=== PATIENT | female | born 1945 | race Caucasian/White ===

== ENCOUNTER → 2024-09-17 10:51 | Outpatient (REF) | payer MEDICARE, SELFPAY ==
--- NOTE | 2024-09-17 10:57 | HM_ITS ---
* Total procedure length 30 days. Wear time 26 days. * Underlying rhythm is sinus with an average rate of 63/Min. * Atrial fibrillation noted about 5.8% of the time. Fastest rate 144/Min. * Rare supraventricular ectopy. * Rare ventricular ectopy. * No symptoms mentioned in diary. MTDD
--- OUTSIDE RECORDS SUMMARY | 2024-09-17 12:03 | XMS_ITS | Patient Health Record ---
Author Organization [facility] Address [address] [facility] [place] [address] Care Team Providers Care Studio Associate Name Role Phone Diony CUBA, Fredy Primary Care Provider Trixie Tony Ni Unavailable [phone] Allergies Allergen (clinical drug ingredient) Drug/Non Drug Allergy documented on EMR Reaction Allergy Type Onset Date Status Information temporarily unavailable Aleve stomach Drug Allergy Active Information temporarily unavailable Amoxicillin Unknown Drug Allergy Active Information temporarily unavailable Motrin stomach Drug Allergy Active Information temporarily unavailable Penicillin Unknown Drug Allergy Active Reason For Referral No Information Medications Medication SIG (Take, Route, Fr equency, Duration) Notes Start Date End Date Status Aspirin 81 MG 1 tablet Orally Once a day; Duration: 30 day(s) Active Vitamin E 400 UNIT 1 capsule Orally Onc e a day; Duration: 30 day(s) Active Vitamin D 1000 UNIT 1 tablet Orally Once a day; Duration: 30 day(s) Active Vitamin C 500 MG as directed Orally Active Lovastatin 40 MG 1 tablet with a meal Orally Once a day; Duration: 30 day(s) Activ e Folic Acid 400 MCG 1 tablet Orally Once a day; Duration: 30 day(s) Active Claritin Orally prn; Duration: 30 day(s) Active Tylenol 325 MG 1 tablet as needed O rally every 6 hrs; Duration: 1 dose 11/29/2012 Active Atenolol 25 MG 1 tablet Orally Once a day; Duration: 30 day(s) Active Problems Problem Type SNOMED Code ICD Code Onset Dates Problem Status W/U Status Risk Notes Problem Information temporarily unavailable Arthralgia (719.40) Active confirmed Problem Information temporarily unavailable Arthritis - Degenerative (719.97) Active confirmed Problem Information temporarily unavailable Hallux Limitus (735.8) Active confirmed Problem Information temporarily unavailable Hallux Valgus (735.0) Active confirmed Plan Of Treatment Pending Test Test Name Order Date X ray : Foot, right 2V 11/29/2012 X ray : Ankle, right 3V 11/29/2012 Insurance Providers Payer Name Payer Address Payer Phone Subscriber Number Group Number Insured Name Patient Relationship to Insured Coverage Start Date Coverage End Date [employer] Preferred [address] [place] [address] [id number] Yohana King Self - patient is the insured Medical (General) History Medical History History ICD Code back, hip, knee pain cataracts high blood pressure measles mumps chicken pox cholesterol Surgical History Surgery Date(Month/Year) tubal ligation 1974 ankle surgery 1977 back surgery 1983 wisdom teeth extraction 1968
--- OUTSIDE RECORDS SUMMARY | 2024-09-17 12:03 | XMS_ITS ---
Author Name [facility] Organization Unknown Care Team Organization Name Specialty Phone Email Start Date End Da te [facility] Kai Kevin Primary Care 08/25/2022 10/09/19 24
--- OUTSIDE RECORDS SUMMARY | 2024-09-17 12:03 | XMS_ITS | Encounter Summary ---
Author Organization [facility] Address [address] [place] [address] Care Team Providers Care Quality Process Auditor Name Role Phone Juju Hoff NP Primary Care Provider [phone] Encounter Details Date Type Department Care Team (Late st Contact Info) Description 07/03/2024 Lab Requisition [facility] - Main Lab [address] [facility] [place] [id number] Maritza Parkinson MD [address] [place] [id number] Encounter for other general examination Social History Tobacco Use Types Packs/Day Years Used Date Smoking Tobacco: Never Smokeless Tobacco: Never Alcohol Use Standard Drinks/Week Comments Not Currently 0 (1 standard drink = 0.6 oz pur e alcohol) Comments Unknown Sex and Gender Information Value Date Recorded Sex Assigned at Not on file Legal Sex Female 9:30 AM EST Gender Identity Not on file Sexual Orientation Not on file documented as of this encounter Functional Status * Are you deaf or do you have serious difficulty hearing? Answer Date of Assessment Author No 06/24/2024 6:38 PM EDT Inez Montemayor RN * Are you blind or do you have serious difficulty seeing, even when wearing glasses? Answer Date of Assessment Author No 06/24/2024 6:38 PM EDT Inez Montemayor RN * Do you have serious difficulty walking or climbing stairs? Answer Date of Assessment Author No 06/24/2024 6:38 PM EDT Inez Montemayor RN * Do you have serious difficulty dressing or bathing? Answer Date of Assessment Author No 06/24/2024 6:38 PM EDT Inez Montemayor RN * Because of a physical, mental, or emotional condition, do you have serious difficulty doing errandsalone such as visiting the doctor? Answer Date of Assessment Author No 06/24/2024 6:38 PM EDT Inez Montemayor RN documented as of this encounter Mental Status * Because of a physical, mental, or emotional condition, do you have serious difficulty concentrating, remembering, or making decisions? (5 years old or older) Answer Entry Date Author No 06/24/2024 6:38 PM EDT Inez Montemayor RN documented in this encounter Plan of Treatment Upcoming Encounters Date Type Department Care Team (Late st Contact Info) Description 09/26/2024 4:00 PM EDT Office Visit Orthopedic Surgery - [place] [address] [facility] [address] [place] [address] Irina Jin MD 175 [facility] [address] [place] [address] 12/17/2024 11:15 AM EDT [facility] [address] [place] [address] Juju Hoff NP [address] [place] [address] 01/30/2025 9:20 AM EST Office Visit [facility] [address] [facility] [address] [place] [address] Yossi Tang MD 300 [facility] [address] [place] [address] documented as of this encounter Procedures Procedure Name Priority Date/Time Associated Diagnosis Comments CBC WITH AUTO DIFFERENTIAL Routine 07/03/2024 6:16 AM EDT Encounter for other general examination CBC AND DIFFERENTIAL Routine 07/03/2024 6:16 AM EDT Encounter for other general examination MAGNESIUM Routine 07/03/2024 6:16 AM EDT Encounter for other general examination COMPREHENSIVE METABOLIC PANEL Routine 07/03/2024 6:16 AM EDT Encounter for other general examination documented in this encounter Results * (ABNORMAL) CBC auto differential (07/03/2024 6:16 AM EDT) [facility] WBC 10.5 4.8 - 10.8 K/mcL LAB HEMETOLOGY METHOD 07/03/2024 8:[address] [facility] RBC 4.20 3.80 - 4.80 M/mcL LAB HEMETOLOGY METHOD 07/03/2024 8:[address] [facility] Hemoglobin 12.2 11.5 - 16.0 g/dL LAB HEMETOLOGY METHOD 07/03/2024 8:[address] [facility] Hematocrit 36.6 35.0 - 47.0 % LAB HEMETOLOGY METHOD 07/03/2024 8:[address] [facility] MCV 86.9 79.0 - 98.0 FL LAB HEMETOLOGY METHOD 07/03/2024 8:[address] [facility] MCH 29.0 27.0 - 32.0 pcg LAB HEMETOLOGY METHOD 07/03/2024 8:[address] [facility] MCHC 33.3 32.0 - 37.0 g/dL LAB HEMETOLOGY METHOD 07/03/2024 8:[address] [facility] RDW 14.8 11.0 - 15.0 % LAB HEMETOLOGY METHOD 07/03/2024 8:[address] [facility] Platelets 345 130 - 400 K/mcL LAB HEMETOLOGY METHOD 07/03/2024 8:[address] [facility] MPV 10.0 7.0 - 11.0 FL LAB HEMETOLOGY METHOD 07/03/2024 8:[address] [facility] NRBC 0.0 <1.0 % LAB HEMETOLOGY METHOD 07/03/2024 8:[address] [facility] NRBC Absolute 0.00 <0.10 K/mcL LAB HEMETOLOGY METHOD 07/03/2024 8:[address] [facility] Neutrophils Relative 56.8 % LAB HEMETOLOGY METHOD 07/03/2024 8:[address] [facility] Lymphocytes Relative 24.4 % LAB HEMETOLOGY METHOD 07/03/2024 8:[address] [facility] Monocytes Relative 13.6 % LAB HEMETOLOGY METHOD 07/03/2024 8:[address] [facility] Eosinophils Relative 3.6 % LAB HEMETOLOGY METHOD 07/03/2024 8:[address] [facility] Basophils Relative 0.7 % LAB HEMETOLOGY METHOD 07/03/2024 8:[address] [facility] Immature Granulocytes Relative 0.9 % LAB HEMETOLOGY METHOD 07/03/2024 8:[address] [facility] Neutrophils Absolute 5.96 1.50 - 7.00 K/mcL LAB HEMETOLOGY METHOD 07/03/2024 8:[address] [facility] Lymphocytes Absolute 2.55 1.00 - 5.00 K/mcL LAB HEMETOLOGY METHOD 07/03/2024 8:[address] [facility] Monocytes Absolute 1.42(H) 0.20 - 1.00 K/mcL LAB HEMETOLOGY METHOD 07/03/2024 8:[address] [facility] Eosinophils Absolute 0.38 0.00 - 0.50 K/mcL LAB HEMETOLOGY METHOD 07/03/2024 8:49 AM EDT [facility] Basophils Absolute 0.07 0.00 - 0.20 K/[facility] LAB HEMETOLOGY METHOD 07/03/2024 8:49 AM EDT [facility] Immature Granulocytes Absolute 0.09(H) 0.00 - 0.03 K/[facility] LAB HEMETOLOGY METHOD 07/03/2024 8:49 AM EDT [facility] Blood Venous blood specimen / Unknown Venipuncture / Unknown 07/03/2024 6:16 AM EDT 07/03/2024 8:06 AM EDT Maritza Parkinson MD LAB BLOOD ORDERABLES Final Resu lt Performing Organization Address City/[facility]/ZIP Co de Phone Number [facility] [address] [place] [address], [place] [phone] * Magnesium (07/03/2024 6:16 AM EDT) Magnesium 2.2 1.9 - 2.6 mg/dL LAB CHEMISTRY METHOD 07/03/2024 9:33 AM EDT [facility] Blood Venous blood specimen / Unknown Venipuncture / Unknown 07/03/2024 6:16 AM EDT 07/03/2024 8:06 AM EDT Maritza Parkinson MD LAB BLOOD ORDERABLES Final Resu lt [facility] [address] [place] [address], [place] [phone] * Comprehensive metabolic panel (07/03/2024 6:16 AM EDT) Sodium 141 133 - 145 mmol/L LAB CHEMISTRY METHOD 07/03/2024 9:34 AM EDT [facility] Potassium 4.0 3.5 - 5.5 mmol/L LAB CHEMISTRY METHOD 07/03/2024 9:[address] [facility] Chloride 106 96 - 110 mmol/L LAB CHEMISTRY METHOD 07/03/2024 9:[address] [facility] CO2 24 21 - 32 mmol/L LAB CHEMISTRY METHOD 07/03/2024 9:[address] [facility] Anion Gap 11 3 - 11 LAB CHEMISTRY METHOD 07/03/2024 9:[address] [facility] Glucose 90 70 - 100 mg/dL LAB CHEMISTRY METHOD 07/03/2024 9:[address] [facility] BUN 15 5 - 25 mg/dL LAB CHEMISTRY METHOD 07/03/2024 9:[address] [facility] Creatinine 0.82 0.50 - 1.10 mg/dL LAB CHEMISTRY METHOD 07/03/2024 9:[address] [facility] eGFR 73 >=60 mL/min/1. 73m2 LAB CHEMISTRY METHOD 07/03/2024 9:[address] [facility] Comment:Calculation based on the Chronic Kidney Disease Epidemiology Collaboration (CKD-EPI) equation refit without adjustment for race. BUN/Creatinine Ratio 18.3 LAB CHEMISTRY METHOD 07/03/2024 9:[address] [facility] Calcium 9.0 8.5 - 10.5 mg/dL LAB CHEMISTRY METHOD 07/03/2024 9:[address] [facility] AST (SGOT) 28 10 - 42 unit/L LAB CHEMISTRY METHOD 07/03/2024 9:[address] [facility] ALT (SGPT) 33 10 - 60 unit/L LAB CHEMISTRY METHOD 07/03/2024 9:[address] [facility] Alkaline Phosphatase 77 42 - 121 unit/L LAB CHEMISTRY METHOD 07/03/2024 9:[address] [facility] Total Protein 6.2 6.0 - 8.0 g/dL LAB CHEMISTRY METHOD 07/03/2024 9:34 AM EDT [facility] Albumin 3.2 3.2 - 5.0 g/dL LAB CHEMISTRY METHOD 07/03/2024 9:34 AM EDT [facility] Total Bilirubin 0.9 0.0 - 1.4 mg/dL LAB CHEMISTRY METHOD 07/03/2024 9:34 AM EDT [facility] Blood Venous blood specimen / Unknown Venipuncture / Unknown 07/03/2024 6:16 AM EDT 07/03/2024 8:06 AM EDT us Maritza Parkinson MD LAB BLOOD ORDERABLES Final Resu lt [facility] [address] [place] [address], documented in this encounter Visit Diagnoses Diagnosis Encounter for other general examination documented in this encounter Care Teams Quality Process Auditor Relationship Specialty Start Date End Date Juju Hoff NP [address] [place] [address] PCP - General 06/17/22 documented as of this encounter
== END ==
LOC: HO.CARD 10:51
PROVIDERS: Absent Provider Registered Nurse; PCP Nurse Practitioner Primary Care; Visit Provider Psychiatry & Neurology Neurology
DX: I63.9 Cerebral infarction, unspecified (principal)
CPT/HCPCS: 93270

== ENCOUNTER → 2024-09-17 10:57 | Outpatient (BNV) | payer MEDICARE, SELFPAY | PROVIDERS: Absent Provider Registered Nurse; PCP Nurse Practitioner Primary Care; Visit Provider Internal Medicine | DX: I48.91 Unspecified atrial fibrillation (principal); I47.10 Supraventricular tachycardia, unspecified | CPT/HCPCS: 93272 ==

== ENCOUNTER 2024-10-01 13:22 | Outpatient (AMB) | payer MEDICARE, SELFPAY ==
--- NOTE | 2024-10-01 13:47 | A.OFFVIS_ITS ---
Intake Visit Reasons: 2 months Allergies amoxicillin Allergy (Unknown, Verified 08/29/24 17:11) Unknown HPI Comments Details: This is a 79-year-old woman who had the sudden onset of right facial droop right arm weakness and inability to express herself on 06/24/24.? She was immediately taken to [facility] emergency room where she received DNT and was then transported to [facility] for thrombectomy from the left M2 segment, which resulted in a part of the clot and being lost into the M3 resulting in a small MCA infarct.? Subsequent to CAT scans showed a small amount of subarachnoid hemorrhage.? The patient and has recovered from of facial droop and weakness and is able to say a few words, but still has significant expressive if easier.? No previous history of stroke.? Details of the status of the carotid arteries in the neck was not available from the documents that were provided.? She has not had a cardiac monitoring done to look for atrial fibrillation.? Echocardiogram was unremarkable. 30 day event monitor shows atrial fibrillation. Speech is improving slowly. [facility] Medical History (Updated 10/01/24 @ 13:56 by Nancie Cummins MD) Expressive aphasia Cerebral infarct Review of Systems Const Details: Sleep:? Difficulty getting to sleepdenies.? Difficulty maintaining sleepdenies?.? Urge to move legsdenies.? Teeth grindingdenies.? Shouting or Kicking during sleep denies.? Abnormal behavior during sleepdenies.? Excessive sleepdenies.? Snoring denies.? Daytime sleepinessdenies. ???General/Constitutional:? Change in appetitedenies.? Chillsdenies.? Fatiguedenies.? Feverdenies.? Weight gaindenies.? Weight lossdenies. ???Ophthalmologic:? Blurred visiondenies.? Diminished visual acuitydenies. ???ENT:? Stuffinessdenies.? Decreased hearingdenies.? Dry mouthdenies.? Ear paindenies.? Nosebleeddenies.? Ringing in the earsdenies.? Sinus paindenies.? Sore throat denies.? Swollen glandsdenies. ???Endocrine:? Cold intolerancedenies.? Excessive thirstdenies.? Frequent urinationdenies.? Heat intolerancedenies. ???Respiratory:? Shortness of breathdenies.? Chest paindenies.? Coughdenies. ???Breast:? Breast lumpdenies.? Nipple dischargedenies. ???Cardiovascular:? Chest pain at restdenies.? Chest pain with exertiondenies.? Claudicationdenies .? Dizzinessdenies.? Fluid accumulation in the legsdenies.? Irregular heartbeat denies.? Palpitationsdenies. ???Gastrointestinal:? Abdominal paindenies.? Constipationdenies.? Diarrheadenies.? Difficulty swallowingdenies.? Heartburndenies.? Nauseadenies.? Rectal bleedingdenies. ???Hematology:? Easy bruisingdenies.? Prolonged bleedingdenies. ???Genitourinary:? Frequent urinationdenies.? Urgencydenies.? Incontinencedenies.? Erectile Dysfunctiondenies. ???Musculoskeletal:? Neck paindenies.? Back paindenies.? Muscle achesdenies.? Painful jointsdenies.? Sciaticadenies.? Weaknessdenies. ???Podiatric:? Difficulty walkingdenies.? Foot numbnessdenies. ???Neurologic:? Difficulty swallowingdenies.? Balance difficultydenies.? Coordinationnormal.? Difficulty speakingadmits.? Dizzinessdenies.? Faintingdenies.? Gait abnormality denies.? Headachedenies.? Loss of strengthdenies.? Loss of use of extremity denies.? Low back paindenies.? Memory lossdenies.? Seizuresdenies.? Ticsdenies.? Tingling/Numbnessdenies.? Transient loss of visiondenies.? Tremordenies. ???Psychiatric:? Anxietydenies.? Auditory/visual hallucinationsdenies.? Delusionsdenies.? Depressed mooddenies.? Stressorsdenies.? Substance abusedenies.? Suicidal thoughtsdenies. Physical Exam Neuro Other: Neurological: Abnormal neurological findings:??expressive dysphagia.? Able to speak in single words..?Mental Status:??alert and oriented X 3,?Normal attention, orientation, memory and affect.?Cranial Nerves:??Pupils are equal, round and reactive to light. Fundoscopy shows normal disc bilaterally. External occular muscles are intact. Visual porter are full, no ptosis. Face is symmetrical, no facial weakness or droop. Facial sensations are normal. Tongue protrudes in midline. Palate elevates symmetrically. Shoulder shrugging is normal..?Motor Examination:??Normal muscle tone, bulk and strength,?No atrophy or fasciculations,?No drift of the extended upper extremities,?Deep tendon reflexes are 2+?,?Plantars are flexor?.?Motor Strength:?Proximal Muscles (out of 5):5 Distal Muscles (out of 5):5Neck Flexors (out of 5):5Neck Extensors (out of 5):5 Deltoid (out of 5):5Biceps (out of 5):5Triceps (out of 5):5Serratus Anterior (out of 5):5Wrist Extensors (out of 5):5APB (out of 5):5Finger Spread (out of 5):5Ileopsoas (out of 5):5Quadriceps (out of 5):5Hamstrings (out of 5):5Tibialis Anterior (out of 5):5Peronei (out of 5):5EDB (out of 5):5Gastrocnemius (out of 5):5Straight Leg Raising:??90 degrees.?Sensory Exam:??Normal light touch, temperature, pinprick, vibration and joint-position sensations?,?Rhomberg sign is absent.?Coordination:??no ataxia,?no titubation,?ibacvg-ge-atet, xdug-oipu-mzcq test and rapid alternating movements were normal.?Gait Exam:??Wi thin normal limits.?Cerebellar Signs:??Xafpst-fe-jzbg and fjyr-zl-enjr is normal,?no dysdiadochokinesia?.?Extrapyramidal System:??No tremor, rigidity with normal facial expressions,?No bradykinesia, no bradyphrenia. Normal arm swing and posture. No propulsion or retropulsion.?Speech:??Expressive?dysphasia..? Mini Mental Status Exam: Level of Consciousness:??Alert.?Orientation:??Knows correct year, month, date, day and season,?Knows correct city, county and state. Knows correct location and floor.?Registration:??Able to register 3 objects.?Attention:??Serial 7's performed accurately.?Recall:??Able to recall 3 out of 3 objects.?Language:??Normal spontaneous speech, fluency, repetition,naming, comprehension, reading and writing.?Total Score:??30/30.? General Examination: GENERAL APPEARANCE:??normal,?in no acute distress.?HEAD:??normocephalic,?atraumatic.?EYES:??sclera non- icteric,?conjunctiva clear.?EARS:??auditory canal clear,?tympanic membrane intact, clear.?NOSE:??no lesions.?ORAL CAVITY:??gums normal,?mucosa moist,?no lesions.?THROAT:??clear.?NECK/THYROID:??no cervical lymphadenopathy,?thyroid normal,?neck supple, full range of motion,?no carotid bruit.?SKIN:??no rashes,?no significant birthmarks.?HEART:??S1, S2 normal,?no murmurs.?LUNGS:??clear anteriorly and posteriorly.?CHEST:??no gross rib deformity,?clear to auscultation.?BACK:??normal exam of spine.?EXTREMITIES:??no edema.?PERIPHERAL PULSES:??normal.?PSYCH:??alert, oriented,?cognitive function intact,?cooperative with exam.? Results Reviewed Results Reviewed: 06/24/24 CT angio showed abrupt occlusion of M2 branch of left MCA. Otherwise patent head and neck CTA Cardiac event monitor showing periods of atrial fib with rapid vent rate. Assessment & Plan Assessment & Plan (1) Cerebral infarct: Code(s): I63.9 - Cerebral infarction, unspecified Category: Medical (2) Atrial fibrillation: Code(s): I48.91 - Unspecified atrial fibrillation Category: Medical (3) Expressive aphasia: Code(s): R47.01 - Aphasia Category: Medical Plan Cardiology consult KIET. Start Eliquis ( may not be covered by insurance). Orders: Referrals Cardiology Referral I48.91 - Unspecified atrial fibrillation, I63.9 - Cerebral infarction, unspecified Medications: New apixaban (Eliquis) 5 mg PO BID 60 tabs 4RF I48.91 - Unspecified atrial fibrillation, I63.9 - Cerebral infarction, unspecified Coding Level of Care Code Est Pt Level 4 (19801) Diagnoses Cerebral infarct I63.9 Atrial fibrillation I48.91 Expressive aphasia R47.01
--- OUTSIDE RECORDS SUMMARY | 2024-10-01 14:12 | XMS_ITS | Patient Health Record ---
Author Organization [facility] Address [address] [facility] [place] [address] Care Team Providers Care Wordpress Developer Name Role Phone Diony CUBA, Fredy Primary Care Provider Trixie Tony Ni Unavailable [phone] Allergies Allergen (clinical drug ingredient) Drug/Non Drug Allergy documented on EMR Reaction Allergy Type Onset Date Status Aleve stomach Drug Allergy Active amoxicillin Amoxicillin Unknown Drug Allergy Act nimisha Motrin stomach Drug Allergy Active Penicillin Unknown Drug Allergy Active Reason For [...] Problem Status W/U Status Risk Notes Problem Arthralgia (89041142) Arthralgia (719.40) Active confirmed Problem Disorder of joint of ankle and/or foot (272902689) Arthritis - Degenerative (719.97) Active confirmed Problem 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) (452242935) Hallux Limitus (735.8) Active confirmed Problem Hallux valgus (509333994) Hallux Valgus (735.0) Active confirmed Plan Of Treatment Pending Test Test Name Order Date X ray : Foot, right 2V 11/29/2012 X ray : Ankle, right 3V 11/29/2012 Insurance Providers Payer Name Payer Address Payer Phone Subscriber Number Group Number Insured Name Patient Relationship to Insured Coverage Start Date Coverage End Date [employer] Preferred [address] [place] [address] [id number] Yohana King Self - patient is the insured Medical (General) History Medical History History ICD Code back, hip, knee pain cataracts high blood pressure measles mumps chicken pox cholesterol Surgical History Surgery Date(Month/Year) tubal ligation 1974 ankle surgery 1977 back surgery 1983 wisdom teeth extraction 1968
--- OUTSIDE RECORDS SUMMARY | 2024-10-01 14:12 | XMS_ITS | Encounter Summary ---
Author Organization [facility] Address [address] [place] [address] Care Team Providers Care Cement Crusher Operator Name Role Phone Juju Hoff NP Primary Care Provider Encounter Details Date Type Department Care Team (Late st Contact Info) Description 07/03/2024 Lab Requisition [facility] - Main Lab [address] [facility] [place] [phone] Maritza Parkinson MD [address] [place] [phone] Encounter for other general examination Social History [...] Care Team (Late st Contact Info) Description 11/04/2024 1:00 PM EDT [facility] [address] [place] [phone] Juju Hoff NP [address] [place] [address] 12/17/2024 11:15 AM EDT [facility] [address] [place] [phone] Juju Hoff NP 305 [place] [address] 01/30/2025 9:20 AM EST Office Visit [facility] - [facility] 154 300 [facility] 154 [place] [address] Yossi Tang MD 300 [facility] 154 [place] [address] documented as of this encounter Procedures Procedure [...] CBC auto differential (07/03/2024 6:16 AM EDT) [facility] WBC 10.5 4.8 - 10.8 K/mcL LAB [facility] RBC 4.20 3.80 - 4.80 M/mcL LAB HEMETOLOGY METHOD 07/03/2024 8:49 AM [facility] Hemoglobin 12.2 11.5 - 16.0 g/dL LAB HEMETOLOGY METHOD 07/03/2024 8:49 AM [facility] Hematocrit 36.6 35.0 - 47.0 % LAB HEMETOLOGY METHOD 07/03/2024 8:49 AM [facility] MCV 86.9 79.0 - 98.0 FL LAB HEMETOLOGY METHOD 07/03/2024 8:49 AM [facility] MCH 29.0 27.0 - 32.0 pcg LAB HEMETOLOGY METHOD 07/03/2024 8:49 AM [facility] MCHC 33.3 32.0 - 37.0 g/dL LAB HEMETOLOGY METHOD 07/03/2024 8:49 AM [facility] RDW 14.8 11.0 - 15.0 % LAB HEMETOLOGY METHOD 07/03/2024 8:49 AM [facility] Platelets 345 130 - 400 K/mcL LAB HEMETOLOGY METHOD 07/03/2024 8:49 AM [facility] MPV 10.0 7.0 - 11.0 FL LAB HEMETOLOGY METHOD 07/03/2024 8:49 AM [facility] NRBC 0.0 <1.0 % LAB HEMETOLOGY METHOD 07/03/2024 8:49 AM [facility] NRBC Absolute 0.00 <0.10 K/mcL LAB HEMETOLOGY METHOD 07/03/2024 8:49 AM [facility] Neutrophils Relative 56.8 % LAB HEMETOLOGY METHOD 07/03/2024 8:49 AM [facility] Lymphocytes Relative 24.4 % LAB HEMETOLOGY METHOD 07/03/2024 8:49 AM [facility] Monocytes Relative 13.6 % LAB HEMETOLOGY METHOD 07/03/2024 8:49 AM [facility] Eosinophils Relative 3.6 % LAB HEMETOLOGY METHOD 07/03/2024 8:49 AM [facility] Basophils Relative 0.7 % LAB HEMETOLOGY METHOD 07/03/2024 8:49 AM [facility] Immature Granulocytes Relative 0.9 % LAB HEMETOLOGY METHOD 07/03/2024 8:49 AM [facility] Neutrophils Absolute 5.96 1.50 - 7.00 K/mcL LAB HEMETOLOGY METHOD 07/03/2024 8:49 AM [facility] Lymphocytes Absolute 2.55 1.00 - 5.00 K/mcL LAB HEMETOLOGY METHOD 07/03/2024 8:49 AM [facility] Monocytes Absolute 1.42(H) 0.20 - 1.00 K/mcL LAB HEMETOLOGY METHOD 07/03/2024 8:49 AM [facility] Eosinophils Absolute 0.38 0.00 - 0.50 K/[facility] LAB HEMETOLOGY METHOD 07/03/2024 8:[address] [facility] Basophils Absolute 0.07 0.00 - 0.20 K/[facility] LAB HEMETOLOGY METHOD 07/03/2024 8:[address] [facility] Immature Granulocytes Absolute 0.09(H) 0.00 - 0.03 K/[facility] LAB HEMETOLOGY METHOD 07/03/2024 8:[address] [facility] Blood Venous blood specimen / Unknown Venipuncture / Unknown 07/03/2024 6:16 AM EDT 07/03/2024 8:06 AM EDT us Maritza Parkinson MD LAB BLOOD ORDERABLES Final Resu lt Performing Organization Address City/[facility]/ZIP Co de Phone Number [facility] [address] [place] [address], [place] [phone] * Magnesium (07/03/2024 6:16 AM EDT) Magnesium 2.2 1.9 - 2.6 mg/dL LAB CHEMISTRY METHOD 07/03/2024 9:[address] [facility] Blood Venous blood specimen / Unknown Venipuncture / Unknown 07/03/2024 6:16 AM EDT 07/03/2024 8:06 AM EDT us Maritza Parkinson MD LAB BLOOD ORDERABLES Final Resu lt [facility] [address] [place] [address], [place] [phone] * Comprehensive metabolic panel (07/03/2024 6:16 AM EDT) Sodium 141 133 - 145 mmol/L LAB CHEMISTRY METHOD 07/03/2024 9:[address] [facility] Potassium 4.0 3.5 - 5.5 mmol/L LAB CHEMISTRY METHOD 07/03/2024 9:34 AM [facility] Chloride 106 96 - 110 mmol/L LAB CHEMISTRY METHOD 07/03/2024 9:34 AM [facility] CO2 24 21 - 32 mmol/L LAB CHEMISTRY METHOD 07/03/2024 9:34 AM [facility] Anion Gap 11 3 - 11 LAB CHEMISTRY METHOD 07/03/2024 9:34 AM [facility] Glucose 90 70 - 100 mg/dL LAB CHEMISTRY METHOD 07/03/2024 9:34 AM [facility] BUN 15 5 - 25 mg/dL LAB CHEMISTRY METHOD 07/03/2024 9:34 AM [facility] Creatinine 0.82 0.50 - 1.10 mg/dL LAB CHEMISTRY METHOD 07/03/2024 9:34 AM [facility] eGFR 73 >=60 mL/min/1. 73m2 LAB CHEMISTRY METHOD 07/03/2024 9:34 AM [facility] Comment:Calculation based on the Chronic Kidney Disease Epidemiology Collaboration (CKD-EPI) equation refit without adjustment for race. BUN/Creatinine Ratio 18.3 LAB CHEMISTRY METHOD 07/03/2024 9:34 AM [facility] Calcium 9.0 8.5 - 10.5 mg/dL LAB CHEMISTRY METHOD 07/03/2024 9:34 AM [facility] AST (SGOT) 28 10 - 42 unit/L LAB CHEMISTRY METHOD 07/03/2024 9:34 AM [facility] ALT (SGPT) 33 10 - 60 unit/L LAB CHEMISTRY METHOD 07/03/2024 9:34 AM [facility] Alkaline Phosphatase 77 42 - 121 unit/L LAB CHEMISTRY METHOD 07/03/2024 9:34 AM [facility] Total Protein 6.2 6.0 - 8.0 g/dL LAB CHEMISTRY METHOD 07/03/2024 9:[address] [facility] Albumin 3.2 3.2 - 5.0 g/dL LAB CHEMISTRY METHOD 07/03/2024 9:[address] [facility] Total Bilirubin 0.9 0.0 - 1.4 mg/dL LAB CHEMISTRY METHOD 07/03/2024 9:[address] [facility] Blood Venous blood specimen / Unknown Venipuncture / Unknown 07/03/2024 6:16 AM EDT 07/03/2024 8:06 AM EDT us Maritza Parkinson MD LAB BLOOD ORDERABLES Final Resu lt [facility] [address] [place] [address], documented in this encounter Visit Diagnoses Diagnosis Encounter for other general examination documented in this encounter Care Teams Cement Crusher Operator Relationship Specialty Start Date End Date Juju Hoff NP [address] [place] [address] PCP - General 06/17/22 documented as of this encounter
== END 2024-10-01 14:06 | disposition home or self-care (01) ==
LOC: HO.HSM 13:23
PROVIDERS: PCP Nurse Practitioner Primary Care; Referring Provider Nurse Practitioner Primary Care; Visit Provider Psychiatry & Neurology Neurology
DX: I63.9 Cerebral infarction, unspecified (principal); I48.91 Unspecified atrial fibrillation; R47.01 Aphasia
CPT/HCPCS: 99214

== ENCOUNTER → 2024-10-01 13:22 | Outpatient (BNVA) | payer MEDICARE, SELFPAY | PROVIDERS: PCP Nurse Practitioner Primary Care; Referring Provider Nurse Practitioner Primary Care; Visit Provider Psychiatry & Neurology Neurology | DX: R47.01 Aphasia (principal); I48.91 Unspecified atrial fibrillation; I63.9 Cerebral infarction, unspecified | CPT/HCPCS: 99212 ==

== ENCOUNTER 2024-12-25 10:40 | Outpatient (AMB) | payer MEDICARE, SELFPAY ==
--- NOTE | 2024-12-25 10:43 | MHC.OFFVIS ---
Intake Visit Reasons: 3 Months Allergies amoxicillin Allergy (Unknown, Verified 08/29/24 17:11) Unknown Medication List - Last Reconciled 12/25/24 by Nancie Cummins MD apixaban (Eliquis) 5 mg PO BID atenolol 25 mg PO DAILY fluoxetine 20 mg PO DAILY rosuvastatin 10 mg PO DAILY HPI Comments Details: This is a 79-year-old woman who had the sudden onset of right facial droop right arm weakness and inability to express herself on 06/24/24.? She was immediately taken to [facility] emergency room where she received DNT and was then transported to [facility] for thrombectomy from the left M2 segment, which resulted in a part of the clot being lost into the M3 resulting in a small MCA infarct.? Subsequent to CAT scans showed a small amount of subarachnoid hemorrhage.? The patient and has recovered from of facial droop and weakness and is able to say a few words, but still has significant expressive dysphasia.? No previous history of stroke.? Details of the status of the carotid arteries in the neck was not available from the documents that were provided.? Echocardiogram was unremarkable. 30 day event monitor shows atrial fibrillation. Speech is improving slowly. [facility] Medical History (Updated 10/01/24 @ 13:56 by Nancie Cummins MD) Expressive aphasia Cerebral infarct Review of Systems Const Details: Sleep:? Difficulty getting to sleepdenies.? Difficulty maintaining sleepdenies?.? Urge to move legsdenies.? Teeth grindingdenies.? Shouting or Kicking during sleepdenies.? Abnormal behavior during sleepdenies.? Excessive sleepdenies.? Snoringdenies.? Daytime sleepinessdenies. ???General/Constitutional:? Change in appetitedenies.? Chillsdenies.? Fatiguedenies.? Feverdenies.? Weight gaindenies.? Weight lossdenies. ???Ophthalmologic:? Blurred visiondenies.? Diminished visual acuitydenies. ???ENT:? Stuffinessdenies.? Decreased hearingdenies.? Dry mouthdenies.? Ear paindenies.? Nosebleeddenies.? Ringing in the earsdenies.? Sinus paindenies.? Sore throatdenies.? Swollen glandsdenies. ???Endocrine:? Cold intolerancedenies.? Excessive thirstdenies.? Frequent urinationdenies.? Heat intolerancedenies. ???Respiratory:? Shortness of breathdenies.? Chest paindenies.? Coughdenies. ???Breast:? Breast lumpdenies.? Nipple dischargedenies. ???Cardiovascular:? Chest pain at restdenies.? Chest pain with exertiondenies.? Claudicationdenies.? Dizzinessdenies.? Fluid accumulation in the legsdenies.? Irregular heartbeatdenies.? Palpitationsdenies. ???Gastrointestinal:? Abdominal paindenies.? Constipationdenies.? Diarrheadenies.? Difficulty swallowingdenies.? Heartburndenies.? Nauseadenies.? Rectal bleedingdenies. ???Hematology:? Easy bruisingdenies.? Prolonged bleedingdenies. ???Genitourinary:? Frequent urinationdenies.? Urgencydenies.? Incontinencedenies.? Erectile Dysfunctiondenies. ???Musculoskeletal:? Neck paindenies.? Back paindenies.? Muscle achesdenies.? Painful jointsdenies.? Sciaticadenies.? Weaknessdenies. ???Podiatric:? Difficulty walkingdenies.? Foot numbnessdenies. ???Neurologic:? Difficulty swallowingdenies.? Balance difficultydenies.? Coordinationnormal.? Difficulty speakingadmits.? Dizzinessdenies.? Faintingdenies.? Gait abnormalitydenies.? Headachedenies.? Loss of strengthdenies.? Loss of use of extremitydenies.? Low back paindenies.? Memory lossdenies.? Seizuresdenies.? Ticsdenies.? Tingling/Numbnessdenies.? Transient loss of visiondenies.? Tremordenies. ???Psychiatric:? Anxietydenies.? Auditory/visual hallucinationsdenies.? Delusionsdenies.? Depressed mooddenies.? Stressorsdenies.? Substance abusedenies.? Suicidal thoughtsdenies. Physical Exam Neuro Other: Neurological: Abnormal neurological findings:??expressive dysphasia.? Able to speak in single words and short sentences..?Mental Status:??alert and oriented X 3,?Normal attention, orientation, memory and affect.?Cranial Nerves:??Pupils are equal, round and reactive to light. Fundoscopy shows normal disc bilaterally. External occular muscles are intact. Visual porter are full, no ptosis. Face is symmetrical, no facial weakness or droop. Facial sensations are normal. Tongue protrudes in midline. Palate elevates symmetrically. Shoulder shrugging is normal..?Motor Examination:??Normal muscle tone, bulk and strength,?No atrophy or fasciculations,?No drift of the extended upper extremities,?Deep tendon reflexes are 2+?,?Plantars are flexor?.?Motor Strength:?Proximal Muscles (out of 5):5Distal Muscles (out of 5):5Neck Flexors (out of 5):5Neck Extensors (out of 5):5Deltoid (out of 5):5Biceps (out of 5):5Triceps (out of 5):5Serratus Anterior (out of 5):5Wrist Extensors (out of 5):5APB (out of 5):5Finger Spread (out of 5):5Ileopsoas (out of 5):5Quadriceps (out of 5):5Hamstrings (out of 5):5Tibialis Anterior (out of 5):5Peronei (out of 5):5EDB (out of 5):5Gastrocnemius (out of 5):5Straight Leg Raising:??90 degrees.?Sensory Exam:??Normal light touch, temperature, pinprick, vibration and joint-position sensations?,?Rhomberg sign is absent.?Coordination:??no ataxia,?no titubation,?llowxe-fq-yiua, skvd-wsho-dxpa test and rapid alternating movements were normal.?Gait Exam:??Within normal limits.?Cerebellar Signs:??Lpgytb-pa-gruy and tyjc-eg-gugw is normal,?no dysdiadochokinesia?.?Extrapyramidal System:??No tremor, rigidity with normal facial expressions,?No bradykinesia, no bradyphrenia. Normal arm swing and posture. No propulsion or retropulsion.?Speech:??Expressive?dysphasia..? Mini Mental Status Exam: Level of Consciousness:??Alert.?Orientation:??Knows correct year, month, date, day and season,?Knows correct city, county and state. Knows correct location and floor.?Registration:??Able to register 3 objects.?Attention:??Serial 7's performed accurately.?Recall:??Able to recall 3 out of 3 objects.?Total Score:??30/30.? General Examination: GENERAL APPEARANCE:??normal,?in no acute distress.?HEAD:??normocephalic,?atraumatic.?EYES:??sclera non-icteric,?conjunctiva clear.?EARS:??auditory canal clear,?tympanic membrane intact, clear.?NOSE:??no lesions.?ORAL CAVITY:??gums normal,?mucosa moist,?no lesions.?THROAT:??clear.?NECK/THYROID:??no cervical lymphadenopathy,?thyroid normal,?neck supple, full range of motion,?no carotid bruit.?SKIN:??no rashes,?no significant birthmarks.?HEART:??S1, S2 normal,?no murmurs.?LUNGS:??clear anteriorly and posteriorly.?CHEST:??no gross rib deformity,?clear to auscultation.?BACK:??normal exam of spine.?EXTREMITIES:??no edema.?PERIPHERAL PULSES:??normal.?PSYCH:??alert, oriented,?cognitive function intact,?cooperative with exam.? Assessment & Plan Assessment & Plan (1) Cerebral infarct: Code(s): I63.9 - Cerebral infarction, unspecified Category: Medical (2) Atrial fibrillation: Code(s): I48.91 - Unspecified atrial fibrillation Category: Medical (3) Expressive aphasia: Code(s): R47.01 - Aphasia Category: Medical Plan Continue Eliquis. Stop aspirin. Continue speech therapy. Coding Level of Care Code Est Pt Level 4 (69267) Diagnoses Cerebral infarct I63.9 Atrial fibrillation I48.91 Expressive aphasia R47.01
--- OUTSIDE RECORDS SUMMARY | 2024-12-25 12:26 | XMS_ITS | Encounter Summary ---
Author Organization [facility] Address [address] [place] [address] Care Team Providers Care Knowledge Architect Name Role Phone Juju Hoff NP Primary Care Provider [phone] Encounter Details Date Type Department Care Team (Late st Contact Info) Description 07/09/2024 Lab Requisition [facility] - Main Lab 299 [facility] [place] [phone] Maritza Parkinson MD [address] [place] [phone] Encounter for other general examination Social History [...] Author No 06/24/2024 6:38 PM EDT Inez Montemyaor RN * Do you have serious difficulty [...] Care Team (Late st Contact Info) Description 01/09/2025 11:20 AM EST Office Visit [facility] - [facility] [address] [facility] 154 [place] [address] Yossi Tang MD [address] [place] [address] [place] [address] 03/19/2025 11:30 AM EST Office Visit Internal Medicine - [facility] 305 [place] [address] Juju Hoff NP [address] [place] [address] documented as of this encounter Procedures Procedure Name Priority Date/Time Associated Diagnosis Comments COMPLETE BLOOD COUNT Routine 07/09/2024 6:15 AM EDT Encounter for other general examination COMPREHENSIVE METABOLIC PANEL Routine 07/09/2024 6:15 AM EDT Encounter for other general examination documented in this encounter Results * (ABNORMAL) Complete blood count (07/09/2024 6:15 AM EDT) [facility] WBC 8.9 4.8 - 10.8 K/mcL LAB HEMETOLOGY METHOD 07/09/2024 10:35 AM [facility] RBC 4.20 3.80 - 4.80 M/mcL LAB HEMETOLOGY METHOD 07/09/2024 10:35 AM [facility] Hemoglobin 12.0 11.5 - 16.0 g/dL LAB HEMETOLOGY METHOD 07/09/2024 10:35 AM [facility] Hematocrit 37.4 35.0 - 47.0 % LAB HEMETOLOGY METHOD 07/09/2024 10:35 AM [facility] MCV 89.7 79.0 - 98.0 FL LAB HEMETOLOGY METHOD 07/09/2024 10:35 AM [facility] MCH 28.8 27.0 - 32.0 pcg LAB HEMETOLOGY METHOD 07/09/2024 10:35 AM [facility] MCHC 32.1 32.0 - 37.0 g/dL LAB HEMETOLOGY METHOD 07/09/2024 10:35 AM [facility] RDW 14.7 11.0 - 15.0 % LAB HEMETOLOGY METHOD 07/09/2024 10:35 AM [facility] Platelets 423(H) 130 - 400 K/mcL LAB HEMETOLOGY METHOD 07/09/2024 10:35 AM [facility] MPV 9.7 7.0 - 11.0 FL LAB HEMETOLOGY METHOD 07/09/2024 10:35 AM [facility] NRBC 0.0 <1.0 % LAB HEMETOLOGY METHOD 07/09/2024 10:35 AM [facility] NRBC Absolute 0.00 <0.10 K/mcL LAB HEMETOLOGY METHOD 07/09/2024 10:35 AM [facility] Blood Venous blood specimen / Unknown Venipuncture / Unknown 07/09/2024 6:15 AM EDT 07/09/2024 9:27 AM EDT us Maritza Parkinson MD LAB BLOOD ORDERABLES Final Resu lt [facility] [address] [place] [address], * Comprehensive metabolic panel (07/09/2024 6:15 AM EDT) Sodium 137 133 - 145 mmol/L LAB CHEMISTRY METHOD 07/09/2024 11:47 AM [facility] Potassium 4.5 3.5 - 5.5 mmol/L LAB CHEMISTRY METHOD 07/09/2024 11:47 AM [facility] Chloride 102 96 - 110 mmol/L LAB CHEMISTRY METHOD 07/09/2024 11:47 AM [facility] CO2 26 21 - 32 mmol/L LAB CHEMISTRY METHOD 07/09/2024 11:47 AM [facility] Anion Gap 9 3 - 11 LAB CHEMISTRY METHOD 07/09/2024 11:47 AM [facility] Glucose 92 70 - 100 mg/dL LAB CHEMISTRY METHOD 07/09/2024 11:47 AM [facility] BUN 11 5 - 25 mg/dL LAB CHEMISTRY METHOD 07/09/2024 11:47 AM [facility] Creatinine 0.85 0.50 - 1.10 mg/dL LAB CHEMISTRY METHOD 07/09/2024 11:47 AM [facility] eGFR 70 >=60 mL/min/1. 73m2 LAB CHEMISTRY METHOD 07/09/2024 11:47 AM [facility] Comment:Calculation based on the Chronic Kidney Disease Epidemiology Collaboration (CKD-EPI) equation refit without adjustment for race. BUN/Creatinine Ratio 12.9 LAB CHEMISTRY METHOD 07/09/2024 11:47 AM [facility] Calcium 9.4 8.5 - 10.5 mg/dL LAB CHEMISTRY METHOD 07/09/2024 11:47 AM [facility] AST (SGOT) 25 10 - 42 unit/L LAB CHEMISTRY METHOD 07/09/2024 11:47 AM [facility] ALT (SGPT) 27 10 - 60 unit/L LAB CHEMISTRY METHOD 07/09/2024 11:47 AM [facility] Alkaline Phosphatase 87 42 - 121 unit/L LAB CHEMISTRY METHOD 07/09/2024 11:47 AM [facility] Total Protein 6.5 6.0 - 8.0 g/dL LAB CHEMISTRY METHOD 07/09/2024 11:47 AM [facility] Albumin 3.3 3.2 - 5.0 g/dL LAB CHEMISTRY METHOD 07/09/2024 11:47 AM [facility] Total Bilirubin 0.7 0.0 - 1.4 mg/dL LAB CHEMISTRY METHOD 07/09/2024 11:47 AM [facility] Blood Venous blood specimen / Unknown Venipuncture / Unknown 07/09/2024 6:15 AM EDT 07/09/2024 9:27 AM EDT us Maritza Parkinson MD LAB BLOOD ORDERABLES Final Resu lt [facility] [address] [place] [address], documented in this encounter Visit Diagnoses Diagnosis Encounter for other general examination documented in this encounter Care Teams Knowledge Architect Relationship Specialty Start Date End Date Juju Hoff NP [address] [place] [address] PCP - General 06/17/22 documented as of this encounter
--- OUTSIDE RECORDS SUMMARY | 2024-12-25 12:26 | XMS_ITS | Encounter Summary ---
Author Organization [facility] Address [address] [place] [address] Care Team Providers Care Ocean Lifeguard Name Role Phone Juju Hoff NP Primary Care Provider [phone] Encounter Details Date Type Department Care Team (Late st Contact Info) Description 07/03/2024 Lab Requisition [facility] - Main Lab [address] [facility] [place] [phone] Maritza Pariknson MD [address] [place] [address] Encounter for other general examination Social History [...] Description 01/09/2025 11:20 AM EST Office Visit [facility] - [facility] [address] [facility] [address] [place] [address] Yossi Tang MD [address] [place] [address] [place] [address] 03/19/2025 11:30 AM EST [facility] [address] [place] [address] Juju Hoff NP [address] [place] [address] documented as of this encounter Procedures Procedure [...] CBC auto differential (07/03/2024 6:16 AM EDT) [facility] WBC 10.5 4.8 - 10.8 K/mcL LAB HEMETOLOGY METHOD 07/03/2024 8:49 AM EDT [facility] RBC 4.20 3.80 - 4.80 M/mcL LAB HEMETOLOGY METHOD [facility]/03[facility]24 [facility] Hemoglobin 12.2 11.5 - 16.0 g/dL LAB HEMETOLOGY METHOD 07/03/2024 8:49 AM [facility] Hematocrit 36.6 35.0 - 47.0 % LAB HEMETOLOGY METHOD 07/03/2024 8:49 AM [facility] MCV 86.9 79.0 - 98.0 FL LAB HEMETOLOGY METHOD 07/03/2024 8:49 AM [facility] MCH 29.0 27.0 - 32.0 pcg LAB HEMETOLOGY METHOD 07/03/2024 8:49 AM [facility] MCHC 33.3 32.0 - 37.0 g/dL LAB HEMETOLOGY METHOD 07/03/2024 8:49 AM [facility] RDW 14.8 11.0 - 15.0 % LAB HEMETOLOGY METHOD 07/03/2024 8:49 AM [facility] Platelets 345 130 - 400 K/mcL LAB HEMETOLOGY METHOD 07/03/2024 8:49 AM [facility] MPV 10.0 7.0 - 11.0 FL LAB HEMETOLOGY METHOD 07/03/2024 8:[facility] NRBC 0.0 <1.0 % LAB HEMETOLOGY METHOD 07/03/2024 8:49 AM [facility] NRBC Absolute 0.00 <0.10 K/mcL LAB HEMETOLOGY METHOD 07/03/2024 8:49 AM [facility] Neutrophils Relative 56.8 % LAB HEMETOLOGY METHOD 07/03/2024 8:49 AM [facility] Lymphocytes Relative 24.4 % LAB HEMETOLOGY METHOD 07/03/2024 8:49 AM [facility] Monocytes Relative 13.6 % LAB HEMETOLOGY METHOD 07/03/2024 8:49 AM [facility] Eosinophils Relative 3.6 % LAB HEMETOLOGY METHOD 07/03/2024 8:49 AM [facility] Basophils Relative 0.7 % LAB HEMETOLOGY METHOD 07/03/2024 8:49 AM [facility] Immature Granulocytes Relative 0.9 % LAB HEMETOLOGY METHOD 07/03/2024 8:49 AM [facility] Neutrophils Absolute 5.96 1.50 - 7.00 K/mcL LAB HEMETOLOGY METHOD 07/03/2024 8:49 AM [facility] Lymphocytes Absolute 2.55 1.00 - 5.00 K/mcL LAB HEMETOLOGY METHOD 07/03/2024 8:49 AM [facility] Monocytes Absolute 1.42(H) 0.20 - 1.00 K/mcL LAB HEMETOLOGY METHOD 07/03/2024 8:49 AM [facility] Eosinophils Absolute 0.38 0.00 - 0.50 K/mcL LAB HEMETOLOGY METHOD 07/03/2024 8:49 AM [facility] Basophils Absolute 0.07 0.00 - 0.20 K/mcL LAB HEMETOLOGY METHOD 07/03/2024 8:49 AM [facility] Immature Granulocytes Absolute 0.09(H) 0.00 - 0.03 K/mcL LAB HEMETOLOGY METHOD 07/03/2024 8:49 AM EDT [facility] Blood Venous blood specimen / Unknown Venipuncture / Unknown 07/03/2024 6:16 AM EDT 07/03/2024 8:06 AM EDT Maritza Parkinson MD LAB BLOOD ORDERABLES Final Resu lt Performing Organization Address City/[facility]/ZIP Co de Phone Number [facility] [address] [place] [address], [place] [phone] * Magnesium (07/03/2024 6:16 AM EDT) Magnesium 2.2 1.9 - 2.6 mg/dL LAB CHEMISTRY METHOD 07/03/2024 9:33 AM EDT [facility] Blood Venous blood specimen / Unknown Venipuncture / Unknown 07/03/2024 6:16 AM EDT 07/03/2024 8:06 AM EDT Maritza Parkinson MD LAB BLOOD ORDERABLES Final Resu lt Performing Organization Address [facility]/ZIP Co de Phone Number [facility] [address] [place] [address], [place] [phone] * Comprehensive metabolic panel (07/03/2024 6:16 AM EDT) Sodium 141 133 - 145 mmol/L LAB CHEMISTRY METHOD 07/03/2024 9:34 AM EDT [facility] Potassium 4.0 3.5 - 5.5 mmol/L LAB CHEMISTRY METHOD 07/03/2024 9:34 AM EDT [facility] Chloride 106 96 - 110 mmol/L LAB CHEMISTRY METHOD 07/03/2024 9:34 AM EDT [facility] CO2 24 21 - 32 mmol/L LAB CHEMISTRY METHOD 07/03/2024 9:34 AM [facility] Anion Gap 11 3 - 11 LAB CHEMISTRY METHOD 07/03/2024 9:34 AM [facility] Glucose 90 70 - 100 mg/dL LAB CHEMISTRY METHOD 07/03/2024 9:34 AM [facility] BUN 15 5 - 25 mg/dL LAB CHEMISTRY METHOD 07/03/2024 9:34 AM [facility] Creatinine 0.82 0.50 - 1.10 mg/dL LAB CHEMISTRY METHOD 07/03/2024 9:34 AM [facility] eGFR 73 >=60 mL/min/1. 73m2 LAB CHEMISTRY METHOD 07/03/2024 9:34 AM [facility] Comment:Calculation based on the Chronic Kidney Disease Epidemiology Collaboration (CKD-EPI) equation refit without adjustment for race. BUN/Creatinine Ratio 18.3 LAB CHEMISTRY METHOD 07/03/2024 9:34 AM [facility] Calcium 9.0 8.5 - 10.5 mg/dL LAB CHEMISTRY METHOD 07/03/2024 9:34 AM [facility] AST (SGOT) 28 10 - 42 unit/L LAB CHEMISTRY METHOD 07/03/2024 9:34 AM [facility] ALT (SGPT) 33 10 - 60 unit/L LAB CHEMISTRY METHOD 07/03/2024 9:34 AM [facility] Alkaline Phosphatase 77 42 - 121 unit/L LAB CHEMISTRY METHOD 07/03/2024 9:34 AM [facility] Total Protein 6.2 6.0 - 8.0 g/dL LAB CHEMISTRY METHOD 07/03/2024 9:34 AM [facility] Albumin 3.2 3.2 - 5.0 g/dL LAB CHEMISTRY METHOD 07/03/2024 9:34 AM [facility] Total Bilirubin 0.9 0.0 - 1.4 mg/dL LAB CHEMISTRY METHOD 07/03/2024 9:34 AM EDT [facility] Blood Venous blood specimen / Unknown Venipuncture / Unknown 07/03/2024 6:16 AM EDT 07/03/2024 8:06 AM EDT us Maritza Parkinson MD LAB BLOOD ORDERABLES Final Resu lt [facility] [address] [place] [address], documented in this encounter Visit Diagnoses Diagnosis Encounter for other general examination documented in this encounter Care Teams Ocean Lifeguard Relationship Specialty Start Date End Date Juju Hoff NP [address] [place] [address] PCP - General 06/17/22 documented as of this encounter
--- OUTSIDE RECORDS SUMMARY | 2024-12-25 12:26 | XMS_ITS | Clinical Summary ---
Author Organization [place] [address] [facility] Address [address] [place], [place] [address] [address] Phone Care Team Providers Care Pipelayer Name Role Phone Juju Hoff NP Primary Care Provider [phone] Allergies Active Allergy Reactions Criticality Noted Date Comments Amoxicillin 06/17/2022 Medications atenoloL (TENORMIN) 25 mg tablet Take 1 tablet (25 mg total) by mouth 1 (one) time each day. 023 Active multivitamin (MULTIPLE VITAMINS ORAL) Take 1 Tablet by mouth daily. Active ASPIRIN ORAL Take 1 Tablet by mouth daily. Active loratadine (CLARITIN) 10 mg tablet Take 1 tablet (10 mg total) by mouth 1 (one) time each day. Active cholecalcifer ol, vitamin D3, (DIALYVITE VITAMIN D ORAL) Take 1,000 mg by mouth daily. Active acetaminophen (TYLENOL) 325 mg tablet Take by mouth every 6 (six) hours if needed for mild pain. Active calcium citrate-vitam in D3 250 mg-5 mcg (200 unit) tablet Take 1 tablet by mouth 1 (one) time each day. 025 Active apixaban (ELIQUIS) 5 mg tablet Take 1 tablet (5 mg total) by mouth 2 (two) times a day. Active rosuvastatin (CRESTOR) 10 mg tablet Take 1 tablet by mouth once daily 90 tablet 025 Active minoxidiL 5 % foam Topical: For topical administration on the scalp only; do not use on other parts of the body. Apply directly to the hair- thinning areas of scalp; massage into scalp with fingers; wash hands after application. Refer to bench precision assembler's labeling for additional administration instructions. 3 each 1 Active FLUoxetine (PROzac) 20 mg capsule Take 1 capsule (20 mg total) by mouth 1 (one) time each day. 90 capsule 1 Active rosuvastatin (CRESTOR) 10 mg tablet Take 1 tablet (10 mg total) by mouth 1 (one) time each day. 023 2024 Discontinued FLUoxetine (PROzac) 20 mg capsule TAKE 1 CAPSULE BY MOUTH 1 TIME EACH DAY. 90 capsule 025 2024 Discontinued(R eorder) Active Problems Problem Noted Date Diagnosed Date History of ischemic stroke 12/17/2024 Atrial fibrillation ([facility] V24, [facility] V28) 1 Aphasia 10/04/2024 Dysphagia 10/04/2024 Osteopenia 12/21/2022 Allergic rhinitis 06/17/2022 Mixed hyperlipidemia 06/17/2022 Primary hypertension 06/17/2022 Resolved Problems Problem Noted Date Diagnosed Date Resolved Date Acute ischemic left MCA stro ke ([facility] V24, [facility] V28) 07/22/2024 12/17/2024 Encounters Date Type Department Care Team Description 12/17/2024 11:15 AM EDT Office Visit Internal Medicine - [address] [phone] Juju Hoff NP Atrial fibrillation, unspecified type ([facility] V24, [facility] V28) (Primary Dx); History of ischemic stroke; Aphasia; Mixed hyperlipidemia; Alopecia; Encounter for screening mammogram for malignant neoplasm of breast; Immunization due 12/11/2024 Billing Patient Not Present Internal Medicine - [address] [phone] Juju Hoff NP Aphasia following cerebral infarction (Primary Dx); Dysphagia following cerebral infarction; Hemiplegia and hemiparesis following cerebral infarction affecting right dominant side ([facility] V24, [facility] V28); Facial weakness following cerebral infarction; Essential (primary) hypertension; Constipation, unspecified constipation type; Hyperlipidemia, unspecified hyperlipidemia type; Prediabetes 11/27/2024 [facility] [address] [place], [place] [address] [phone] Juju Hoff NP 11/13/2024 [facility] [phone] Juju Hoff NP 11/04/2024 [facility] [phone] Juju Hoff NP 10/09/2024 9:20 AM EDT Office Visit [facility] Cardiology [facility] [address] [facility] [address] [place] [phone] Yossi Tang MD Paroxysmal atrial fibrillation (CMS/HCC V24, CMS/HCC V28) (Primary Dx); Cerebrovascular accident (CVA), unspecified mechanism (CMS/HCC V24, CMS/HCC V28) 10/02/2024 Billing Patient Not Present [facility] [phone] Juju Hoff NP Aphasia following cerebral infarction (Primary Dx); Dysphagia following cerebral infarction; Hemiplegia and hemiparesis following cerebral infarction affecting right dominant side (CMS/HCC V24, CMS/HCC V28); Facial weakness following cerebral infarction; Essential (primary) hypertension; Constipation, unspecified constipation type; Prediabetes; long-term (current) use of aspirin 10/02/2024 Telephone [facility] Cardiology [facility] [address] [place] [phone] Juju Hoff NP 10/02/2024 Telephone [facility] Cardiology [facility] [address] [place] [phone] Juju Hoff NP 09/27/2024 Telephone Internal Medicine - [address] [phone] Juju Hoff NP 09/26/2024 4:00 PM EDT Office Visit Orthopedic Surgery - [place] [address] [facility] [address] [place] [address] Irina Jin MD Arthritis of knee (Primary Dx) 09/26/2024 Telephone [facility] - [facility] [address] [place] [address] Juju Hoff NP 09/25/2024 [facility] [address] [place] [address] Juju Hoff NP from Last 3 Months Immunizations Immunization Administration Dates Next Due Influenza Quadravalent, MDCK , 0.5ml, preservative free (Flucelvax) 6mo and older 12/20/2022 Influenza trivalent, 0.5mL (Fluad) 65yo and olde r 12/17/2024 Influenza, Unspecified 12/22/2023 Pneumococcal conjugate 20 va lent (Prevnar 20, PCV 20) 2mo and older 06/17/2022 Surgical History Surgery Date Site/Laterality Comments TUBAL LIGATION PROCEDURE: HISTORICAL TUBAL LIGATION BACK SURGERY PROCEDURE: HISTORICAL BACK SURGERY Medical History Medical History Date Comments Dorsalgia DX:Dorsalgia Hypertension Hyperlipidemia Osteopenia Allergic rhinitis Decreased hearing of right ear Vitreous floaters of left eye Prediabetes Retention of urine Acute ischemic left MCA stroke ([facility] V24, [facility] V28) 07/22/2024 Social History Tobacco Use Types Packs/Day Years Used Date Smoking Tobacco: Never Smokeless Tobacco: Never Alcohol Use Standard Drinks/Week Comments Not Currently 0 (1 standard drink = 0.6 oz pur e alcohol) Comments No Sex and Gender Information Value Date Recorded Sex Assigned at Not on file Legal Sex Female 9:30 AM EST Gender Identity Not on file Sexual Orientation Not on file Obstetrics History Last Filed Vital Signs Vital Sign Reading Time Taken Comments Blood Pressure 130/74 12/17/2024 11:44 AM EDT A Pulse 72 12/17/2024 11:44 AM EDT Temperature 36.6 C (97.9 F) 06/24/2024 7:50 PM EDT Respiratory Rate 18 06/24/2024 7:50 PM EDT Oxygen Saturation 94% 10/09/2024 9:33 AM EDT Inhaled Oxygen Concentration - - Weight 71.5 kg (157 lb 9.6 oz) 12/17/2024 11:44 AM EDT Height 162.6 cm (5' 4 ) 12/17/2024 11:44 AM EDT Body Mass Index 27.05 12/17/2024 11:44 AM EDT Plan of Treatment Upcoming Encounters Date Type Department Care Team (Late st Contact Info) Description 01/09/2025 11:20 AM EST Office Visit [facility] - [address] [place] [phone] Yossi Tang MD [address] [place] [address] [address] [place] [address] 03/19/2025 11:30 AM EST Office Visit Internal Medicine - [facility] [address] [place] [address] Juju Hoff, JOEL [address] [place] [address] Health Maintenance Due Date Last Done Comments DTaP,Tdap,and Td Vaccines (1 - Tdap) 1965 Zoster Vaccines (1 of 2) 02/20/1996 RSV Immunization Adult Patients (1 - 1-dose 75+ series) 2021 Falls Risk Assessment 01/23/2022 Hepatitis C Screening 01/23/2022 Medicare Annual Wellness Visit 01/23/2022 Osteoporosis Screening (Bone Density Screening) 01/23/2022 Social Influencers of Health Screening 01/23/2022 Depression Screening 02/21/2024 COVID-19 Vaccine ( season) 2024 Hypertension/CHF/CAD Annual BMP Blood Test 09/16/2025 09/16/2024, 07/09/2024, 07/03/2024, Additional history exists Cholesterol Screening (Lipid Panel) 09/16/2029 09/16/2024, 12/22/2023, 12/22/2023, Additional history exists Pneumococcal Vaccine: 50+ Years Completed 06/17/2022 Influenza Vaccine Completed 12/17/2024, , 12/20/2022 HIB Vaccines Aged Out No longer eligi ble based on patient's age to complete this topic HPV Vaccines Aged Out No longer eligi ble based on patient's age to complete this topic Hepatitis A Vaccines Aged Out No long er eligible based on patient's age to complete this topic Hepatitis B Vaccines Aged Out No long er eligible based on patient's age to complete this topic IPV Vaccines Aged Out No longer eligi ble based on patient's age to complete this topic MMR Vaccines Aged Out No longer eligi ble based on patient's age to complete this topic Meningococcal ACWY Vaccine Aged Out N o longer eligible based on patient's age to complete this topic Meningococcal B Vaccine Aged Out No l onger eligible based on patient's age to complete this topic RSV Immunization Patients Under 20 months Aged Out No longer eligible based on patient's age to complete this topic Varicella Vaccines Aged Out No longer eligible based on patient's age to complete this topic Procedures Procedure Name Priority Date/Time Associated Diagnosis Comments ECG 12-LEAD Routine 10/09/2024 9:37 AM EDT Cerebrovascular accident (CVA), unspecified mechanism (CMS/HCC V24, CMS/HCC V28) CT ARTHROCENTESIS/ASP IRATION/INJECTION MAJOR JOINT/BURSA W/O U/S GUIDANCE Routine 09/26/2024 4:00 PM EDT Arthritis of knee CARDIAC HOLTER MONITOR Routine 09/25/2024 12:15 PM EDT BASIC METABOLIC PANEL Routine 09/16/2024 1:46 PM EDT Cerebrovascular accident (CVA), unspecified mechanism (CMS/HCC V24, CMS/HCC V28) Primary hypertension LIPID PANEL WITH REFLEX TO DIRECT LDL Routine 09/16/2024 1:46 PM EDT Cerebrovascular accident (CVA), unspecified mechanism (CMS/HCC V24, CMS/HCC V28) Mixed hyperlipidemia from Last 3 Months or Most Recently Relevant to Health Maintenance Results * ECG 12 lead (10/09/2024 9:37 AM EDT) Ventricular Rate ECG 71 BPM GEMUSE Atrial Rate 71 BPM GEMUSE P-R Interval 154 ms GEMUSE QRS Duration 74 ms GEMUSE Q-T Interval 410 ms GEMUSE QTc 445 ms GEMUSE P Wave [place] 37 degrees GEMUSE R [place] 42 degrees GEMUSE T [place] 49 degrees GEMUSE ECG Interpretation Normal sinus rhythm Normal ECG When compared with ECG of 24-JUN-2024 19:31, No significant change was found Confirmed by MD Tang Christopher ([id number]) on 10/09/2024 10:56:56 AM GEMUSE 10/09/2024 9:37 AM EDT 10/09/2024 10:56 AM EDT us Yossi Tang MD ECG ORDERABLES Final Res ult GEMUSE * CT ARTHROCENTESIS/ASPIRATION/INJECTION MAJOR JOINT/BURSA W/O U/S GUIDANCE (09/26/2024 4:00 PM EDT) Narrative Irina Jin MD - 09/26/2024 4:00 PM EDT Irina Jin MD 09/27/2024 8:47 AM L Inj/Asp: R knee Indications: pain Details: 22 G needle, anterolateral approach Medications: 4 mL lidocaine 1 %; 40 mg triamcinolone acetonide 40 mg/mL Outcome: tolerated well, no immediate complications Informed Consent: Laterality: Right Relevant images/test results available and reviewed: yes Health status cleared: Yes Procedure/treatment, purpose, treatment alternatives, risks/potential complications and benefits explained: yes Risk/complications/benefits details: Risks include bleeding, infection, increasing pain Patient questions answered: yes Patient agrees, verbalizes understanding, and wants to proceed: yes Consent given by: Patient Informed consent discussion completed by Physician/BG with patient: Verbal Pre-procedure timeout performed: yes us Irina Jin MD IN CLINIC/BEDSIDE ORDERABLES F inal Result * Cardiac holter monitor (<= 48 hours) (09/25/2024 12:15 PM EDT) Anatomical Region Laterality Modality Cardiac Diagnost ic Historical Provider [facility] LAMBERTO SAMAYOA Final Result * Lipid panel with reflex to direct LDL (09/16/2024 1:46 PM EDT) Cholesterol 146 0 - 200 mg/dL LAB CHEMISTRY METHOD 09/16/2024 7:45 PM EDT [facility] Triglycerides 147 0 - 150 mg/dL LAB CHEMISTRY METHOD 09/16/2024 7:45 PM EDT [facility] HDL 58 >=40 mg/dL LAB CHEMISTRY METHOD 09/16/2024 7:45 PM EDT [facility] LDL Calculated 59 0 - 100 mg/dL LAB CHEMISTRY METHOD 09/16/2024 7:45 PM EDT [facility] VLDL Cholesterol Ed 29.4 mg/dL LAB CHEMISTRY METHOD 09/16/2024 7:45 PM EDT [facility] Non HDL Chol. (LDL+VLDL) 88 <145 mg/dL LAB CHEMISTRY METHOD 09/16/2024 7:45 PM EDT [facility] Chol/HDL Ratio 2.5 0.0 - 4.4 LAB CHEMISTRY METHOD 09/16/2024 7:45 PM EDT [facility] Blood Venous blood specimen / Unknown Venipuncture / Unknown 09/16/2024 1:46 PM EDT 09/16/2024 1:46 PM EDT Juju Hoff PROBATE CLERK LAB BLOOD ORDERABLES Final Resu lt [facility] [address] [place] [address], [place] [phone] * (ABNORMAL) Basic metabolic panel (09/16/2024 1:46 PM EDT) Sodium 140 133 - 145 mmol/L LAB CHEMISTRY METHOD 09/16/2024 7:45 PM EDT [facility] Potassium 4.4 3.5 - 5.5 mmol/L LAB CHEMISTRY METHOD 09/16/2024 7:45 PM [facility] Chloride 109 96 - 110 mmol/L LAB CHEMISTRY METHOD 09/16/2024 7:45 PM [facility] CO2 26 21 - 32 mmol/L LAB CHEMISTRY METHOD 09/16/2024 7:45 PM [facility] Anion Gap 5 3 - 11 LAB CHEMISTRY METHOD 09/16/2024 7:45 PM [facility] Glucose 106(H) 70 - 100 mg/dL LAB CHEMISTRY METHOD 09/16/2024 7:45 PM [facility] BUN 11 5 - 25 mg/dL LAB CHEMISTRY METHOD 09/16/2024 7:45 PM [facility] Creatinine 1.05 0.50 - 1.10 mg/dL LAB CHEMISTRY METHOD 09/16/2024 7:45 PM [facility] eGFR 54(L) >=60 mL/min/1. 73m2 LAB CHEMISTRY METHOD 09/16/2024 7:45 PM [facility] Comment:Calculation based on the Chronic Kidney Disease Epidemiology Collaboration (CKD-EPI) equation refit without adjustment for race. BUN/Creatinine Ratio 10.5 LAB CHEMISTRY METHOD 09/16/2024 7:45 PM [facility] Calcium 9.2 8.5 - 10.5 mg/dL LAB CHEMISTRY METHOD 09/16/2024 7:45 PM [facility] Blood Venous blood specimen / Unknown Venipuncture / Unknown 09/16/2024 1:46 PM EDT 09/16/2024 1:46 PM EDT us Juju Hoff NP LAB BLOOD ORDERABLES Final Resu lt [facility] [address] [place] [address], from Last 3 Months or Most Recently Relevant to Health Maintenance Insurance [employer] Care Teams Pipelayer Relationship Specialty Start Date End Date Juju Hoff NP [address] [facility] [place] [address] PCP - General 06/17/22
--- OUTSIDE RECORDS SUMMARY | 2024-12-25 12:26 | XMS_ITS | Patient Health Record ---
Author Organization [facility] Address [address] [place] [address] Care Team Providers Care Servicing Rep Name Role Phone Diony CUBA, Fredy Primary Care Provider Trixie Tony Ni Unavailable [phone] Allergies Allergen (clinical drug ingredient) Drug/Non Drug [...] Status W/U Status Risk Notes Problem Arthralgia (17335919) Arthralgia (719.40) Active confirmed Problem Disorder of joint of ankle and/or foot (141332305) Arthritis - Degenerative (719.97) Active confirmed Problem 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) (562488269) Hallux Limitus (735.8) Active confirmed Problem Hallux valgus (893291269) Hallux Valgus (735.0) Active confirmed Plan Of Treatment Pending Test Test Name Order Date X ray : Foot, right 2V 11/29/2012 X ray : Ankle, right 3V 11/29/2012 Insurance Providers Payer Name Payer Address Payer Phone Subscriber Number Group Number Insured Name Patient Relationship to Insured Coverage Start Date Coverage End Date [employer] Preferred [address] [place] [address] [id number] Yohana King Self - patient is the insured Medical (General) History Medical History History ICD Code back, hip, knee pain cataracts high blood pressure measles mumps chicken pox cholesterol Surgical History Surgery Date(Month/Year) tubal ligation 1974 ankle surgery 1977 back surgery 1983 wisdom teeth extraction 1968
== END 2024-12-25 10:59 | disposition home or self-care (01) ==
LOC: HO.HSM 10:41
PROVIDERS: PCP Nurse Practitioner Primary Care; Visit Provider Psychiatry & Neurology Neurology
DX: I63.9 Cerebral infarction, unspecified (principal); I48.91 Unspecified atrial fibrillation; R47.01 Aphasia
CPT/HCPCS: 99214

== ENCOUNTER → 2024-12-25 10:40 | Outpatient (BNVA) | payer MEDICARE, SELFPAY | PROVIDERS: PCP Nurse Practitioner Primary Care; Visit Provider Psychiatry & Neurology Neurology | DX: R47.01 Aphasia (principal); I48.91 Unspecified atrial fibrillation; I63.9 Cerebral infarction, unspecified | CPT/HCPCS: 99212 ==